=== PATIENT | male | born 1985 | race Asian ===

== ENCOUNTER → 2022-09-30 | Emergency (ER) | payer SELFPAY ==
[~2022-09-30] VITALS: Ht 162.6 cm; Wt 50.8 kg
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
--- NOTE | 2022-09-30 06:20 | NUR ---
[employer] AT BEDSIDE WITH PT
[2022-09-30 10:25] VITALS: BP 120/66
--- NOTE | 2022-09-30 11:30 | NUR ---
Patient discharged to home in stable condition. Written and verbal after care instructions given. Patient verbalizes understanding of instruction. ID band removed. Paperwork provided to patient. Patient ambulated out of ER without incident. Patient stable at time of discharge.
== END | disposition home or self-care (01) ==
LOC: ER 06:11
DX: S00.81XA Abrasion of other part of head, initial encounter (principal); F10.129 Alcohol abuse with intoxication, unspecified; Y04.2XXA Assault by strike against or bumped into by another person, initial encounter; Y93.89 Activity, other specified; Y92.89 Other specified places as the place of occurrence of the external cause; Y99.8 Other external cause status; Y90.9 Presence of alcohol in blood, level not specified
CPT/HCPCS: 70450-TC